=== PATIENT | female | born 1960 | race Caucasian/White ===

== ENCOUNTER 2016-05-29 09:23 | Emergency (ER) | payer BC, OTHER ==
[~2016-05-29] VITALS: Ht 154.9 cm; Wt 107.5 kg
[~2016-05-29 09:23] MED LIST: ALPR0.5T6 PO; ASPI81TA2 PO; CA C1TAB38 PO; FAMO40TA57 PO; LEVO100T PO; OMEG500C PO; OMEP20TA PO; SENN-30 PO; SOY1TABL2 PO
[2016-05-29 09:35] VITALS: BP 140/77
--- NOTE | 2016-05-29 09:58 | PHYS DOC ---
Past Medical History Past Medical History: High Cholesterol, Hypothyroid Past Surgical History: Tonsillectomy, Tubal ligation Additional Past Surgical Histo: thyroid, lt hand Additional Information: nonsmoker Alcohol Use: None Drug Use: None Adult General Chief Complaint Chief Complaint: FOOT INJURY PAIN HPI HPI Patient is a 55 year old female who presents with dorsal mid-foot pain starting last night. She denies any injury to her foot. She states that she was not able to sleep last night because even the blankets on her bed touching the foot caused her pain. She noticed redness and swelling over the affected area. She denies any fevers. She was wearing slip-on shoes yesterday that ended near the affected area. She states that the shoes are well worn and comfortable without rubbing. Her PCP is Dr. Yessica Staley. Review of Systems Review of Systems Constitutional: Denies fever or chills. [] Musculoskeletal: Denies back pain or joint pain. Reports right foot pain and swelling. Integument: Denies rash or skin lesions. Reports right foot redness. Neurologic: Denies focal weakness or sensory changes. [] Allergies Allergies Allergies Coded Allergies Type Severity Reaction Last Updated Verified Sulfa (Sulfonamide Antibiotics) Allergy Intermediate 04/17/15 Yes Tetracyclines Allergy Intermediate 04/17/15 Yes Physical Exam Physical Exam Constitutional: Well developed, well nourished, no acute distress, non-toxic appearance. [] HENT: Normocephalic, atraumatic, oropharynx moist. [] Eyes: PERRLA, EOMI, conjunctiva normal, no discharge. [] Skin: Warm, dry, no rash. There is mild erythema and warmth of the right dorsal mid-foot without induration or lymphangitis. Extremities: Right dorsal mid-foot tenderness, ROM intact, minimal edema. 2+ pedal pulses. Less than 2 second capillary refill in the toes. Light touch sensation intact distally. There is no tenderness in the ankle or calf. Neurologic: Alert and oriented X 3, normal motor function, normal sensory function, no focal deficits noted. [] Psychologic: Affect normal, judgement normal, mood normal. [] Current Patient Data Vital Signs Vital Signs Date Time Temp Pulse Resp B/P Pulse Ox O2 Delivery O2 Flow Rate FiO2 05/29/16 09:35 97.5 72 20 97 Room Air 97.5 EKG EKG [] Radiology/Procedures Radiology/Procedures REASON: pain, swelling over mid-foot PROCEDURE: FOOT RIGHT 3V Three-view right foot study History: Dorsal right foot pain in the second and third metatarsal area since last p.m. Swelling. No known injury. Findings: No acute fracture or dislocation or osteolytic process is seen. Small posterior spur of the calcaneus is seen. IMPRESSION: No acute fracture. Course & Med Decision Making Course & Med Decision Making Pertinent Labs and Imaging studies reviewed. (See chart for details) The patient presents with atraumatic right foot pain starting last night. On exam, the dorsal midfoot is tender, erythematous, and mildly swollen. She is neurovascularly intact. X-ray does not show any acute changes. The patient is discharged home with prescription for Keflex for possible early cellulitis and Bethel for pain. Return precautions were discussed. She verbalizes understanding and agrees with plan. Dragon Disclaimer Dragon Disclaimer This electronic medical record was generated, in whole or in part, using a voice recognition dictation system. Departure Departure Impression: Primary Impression: Foot pain, right Additional Impression: Cellulitis of foot Disposition: 01 HOME, SELF-CARE Condition: STABLE Referrals: YESSICA KEENAN MD (PCP) Patient Instructions: Cellulitis, [id number] Additional Instructions: Your x-ray today was normal. Please complete all the prescribed antibiotics, even if you are feeling better. Please take the prescribed pain medication as directed. Do not drive or operate heavy machinery while taking this medication. Please follow-up with your primary care doctor within the next 2-3 days, sooner if you notice worsening of the pain, redness, or swelling of the foot. Return to the emergency department if you have any new or concerning symptoms. Scripts Hydrocodone/Apap 5-325 (Bethel 5-325 Tablet)1 Each Tablet1 Tab PO PRN Q6HRS PRN PAIN #20 TAB Prov:YARA DIA 05/29/16 Cephalexin (Keflex)500 Mg Capsule1 Cap PO BID #14 CAP Prov:YARA DIA 05/29/16 Problem Qualifiers YARA DIA May 29, 2016 09:58
--- NOTE | 2016-05-29 10:30 | RAD ---
Three-view right foot study History: Dorsal right foot pain in the second and third metatarsal area since last p.m. Swelling. No known injury. Findings: No acute fracture or dislocation or osteolytic process is seen. Small posterior spur of the calcaneus is seen. IMPRESSION: No acute fracture.
[2016-05-29] MEDS ORDERED: HYDR-971 PO (10:51)
[2016-05-29] MEDS ORDERED: CEPH-264 PO (10:51)
== END 2016-05-29 11:11 | disposition home or self-care (01) ==
LOC: ER 09:23
DX: L03.115 Cellulitis of right lower limb (principal); E03.9 Hypothyroidism, unspecified; E78.00 Pure hypercholesterolemia, unspecified; Z88.2 Allergy status to sulfonamides; Z88.1 Allergy status to other antibiotic agents
CPT/HCPCS: 73630; 99284

== ENCOUNTER → 2017-07-15 | Outpatient (CLI) | payer BC | END | disposition home or self-care (01) | LOC: MAMMO 09:48 | DX: Z12.31 Encounter for screening mammogram for malignant neoplasm of breast (principal) | CPT/HCPCS: 77063; 77067 ==

== ENCOUNTER → 2018-07-30 | Outpatient (CLI) | payer BC ==
[~2018-07-30] MED LIST changes: +ASPI-630 PO; -ASPI81TA2 PO; +CEPH-264 PO; +HYDR-3164 PO; -OMEP20TA PO; +OMEP20TA8 PO
--- NOTE | 2018-07-30 10:35 | RAD ---
DATE: 07/30/2018 EXAM: MAMMO JASON SCREENING BILATERAL HISTORY: Routine screening COMPARISON: 07/15/2017 This study was interpreted with the benefit of Computerized Aided Detection (CAD). Breast Density: FATTY The breast parenchyma is primarily fatty replaced. Breast parenchyma level density A. FINDINGS: 2-D and 3-D tomosynthesis imaging was performed in CC and MLO projections. No new or enlarging breast densities are seen. Benign type calcifications are present. No suspicious microcalcifications have developed. IMPRESSION: Stable mammograms without evidence of malignancy. BI-RADS CATEGORY: 2 BENIGN FINDING(S) RECOMMENDED FOLLOW-UP: 12M 12 MONTH FOLLOW-UP PQRS compliance statement: Patient information was entered into a reminder system with a target due date for the next mammogram. Mammography is a sensitive method for finding small breast cancers, but it does not detect them all and is not a substitute for careful clinical examination. A negative mammogram does not negate a clinically suspicious finding and should not result in delay in biopsying a clinically suspicious abnormality. "Our facility is accredited by the [employer] Mammography Program."
== END | disposition home or self-care (01) ==
LOC: MAMMO 07:25
PROVIDERS: ATTEND Family Medicine
DX: Z12.31 Encounter for screening mammogram for malignant neoplasm of breast (principal); N64.89 Other specified disorders of breast
CPT/HCPCS: 77063; 77067

== ENCOUNTER → 2020-10-17 | Outpatient (CLI) | payer BC ==
[~2020-10-17] MED LIST changes: +LEVO-101 PO; -LEVO100T PO
--- NOTE | 2020-10-19 14:52 | RAD ---
INDICATION: 60 years of age asymptomatic female patient presents for screening mammography. TECHNIQUE: Full field craniocaudal and mediolateral oblique images of both breasts were obtained usi ng digital technique with tomosynthesis and also analyzed with computer-aided detection software. COMPARISON: Prior mammographic imaging 07/30/2018 07/15/2017 03/06/2015. BREAST COMPOSITION: Category B: There are scattered fibroglandular densities. FINDINGS: Benign calcifications are present. The parenchymal pattern appears stable. No suspicious masses, microcalcifications or architectural distortion is present to suggest malignanc y in either breast. The visualized axillae are unremarkable. IMPRESSION: No mammographic evidence of malignancy. RECOMMENDATION: Annual screening mammography is recommended, unless clinically indicated sooner based on symptoms or change in physical exam. BIRADS 2: BENIGN This study was interpreted with the benefit of Computerized Aided Detection (CAD). Patient information is entered into the reminder system with a target due date for the next screening mammogram. Mammography is the most sensitive method for finding small breast cancers, but it does not detect the m all and is not a substitute for careful clinical examination. A negative mammogram does not negate a clinically suspicious finding and should not result in delay in biopsying a clinically suspicious a bnormality. "Our facility is accredited by the [employer] Mammography Program." Electronically signed by: Mendel Stock MD (10/19/2020 2:49 PM) [facility]
== END ==
LOC: MAMMO 08:20
PROVIDERS: ATTEND Family Medicine
DX: Z12.31 Encounter for screening mammogram for malignant neoplasm of breast (principal)
CPT/HCPCS: 77063; 77067